=== PATIENT | female | born 1990 | race Caucasian/White ===

== ENCOUNTER 2025-06-12 11:05 | Emergency (ER) | payer OTHER ==
[~2025-06-12] VITALS: Ht 162.6 cm; Wt 80.0 kg
[2025-06-12 11:11] VITALS: O2SAT 97
[2025-06-12] MEDS: KETOROLAC 15MG/ML VIAL IM ONE (12:41)
[2025-06-12] MEDS: BACITRACIN ZINC OINT UDPKT TOP SCH (14:12)
[2025-06-12 15:03] VITALS: BP 136/86; PULSE 89; RESP 19; TEMP 36.7; O2SAT 97
== END 2025-06-12 15:04 | disposition home or self-care (01) ==
LOC: ER 11:05
DX: S52.591A Other fractures of lower end of right radius, initial encounter for closed fracture (principal); S00.31XA Abrasion of nose, initial encounter; V49.40XA Driver injured in collision with unspecified motor vehicles in traffic accident, initial encounter; Y93.89 Activity, other specified; Y92.410 Unspecified street and highway as the place of occurrence of the external cause; Y99.8 Other external cause status
CPT/HCPCS: 73030; 73080; 29105; 96372; 99284; J1885; Z7610; A6449